=== PATIENT | female | born 2000 | race Caucasian/White ===

== ENCOUNTER 2019-09-10 10:54 | Emergency (ER) | payer BC, OTHER ==
[~2019-09-10] VITALS: Ht 170.2 cm; Wt 77.3 kg
[2019-09-10 11:53] LABS: CLARITY,URINE TURBID (Clear); COLOR,URINE YELLOW (Yellow); GLUCOSE, URINE NEGATIVE (Neg); KETONES,URINE TRACE mg/dl (Neg); LEUKOCYTE ESTERASE ,URINE MODERATE (Neg); NITRITES, URINE NEGATIVE (Neg); OCCULT BLOOD,URINE LARGE (Neg); PROTEIN,URINE 100 mg/dl (Neg); UA COLLECTION TYPE CLN CATCH MIDSTREAM
[2019-09-10 11:54] LABS: URINE HCG NEGATIVE (NEG)
[2019-09-10] MEDS ORDERED: SULF1TAB49 PO (12:05)
[2019-09-10 12:14] VITALS: BP 144/94
[2019-09-10 12:50] LABS: BACTERIA,URINE 4+ /HPF (Neg); RBC,URINE 50-100 /HPF (0-2); WBC,URINE TNTC /HPF (0-4)
[2019-09-10 13:01] LABS: RENAL CELLS, URINE FEW /HPF; SQUAMOUS EPITHELIAL CELL,UR MODERATE /LPF (FEW); TRANSITIONAL EPI CELLS,URINE FEW /HPF
== END 2019-09-10 12:15 | disposition home or self-care (01) ==
LOC: ER 10:54
DX: N39.0 Urinary tract infection, site not specified (principal); Z88.0 Allergy status to penicillin; Z79.899 Other long term (current) drug therapy
CPT/HCPCS: 81001; 81025; 87077; 87088; 87186; 99283